=== PATIENT | male | born 1995 | race Caucasian/White ===

== ENCOUNTER 2017-01-03 09:06 | Emergency (ER) | payer MEDICAID ==
[~2017-01-03] VITALS: Ht 175.3 cm; Wt 77.0 kg
[2017-01-03 09:09] VITALS: Ht 175.3 cm; Wt 77.0 kg
[2017-01-03 09:57] LABS: URINE BLOOD (Dip) POC Negative (NEGATIVE)
[2017-01-03] MEDS ORDERED: IBUP-1542 PO (10:17)
--- NOTE | 2017-01-03 10:26 | ERA ---
ER Documentation Chief Complaint Date/Time DATE: 01/03/17 TIME: 10:23 Chief Complaint B/L FLANK PAIN X 1 WEEK HPI Patient is a 21-year-old female who presents complaining of right flank pain. 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 Patient says the pain is worse with movement and palpation. Patient denies any troubles urinating or moving bowels. Patient denies any blood in urine, headache, nausea, vomiting, fever or difficulty walking. Patient has not tried anything at this point to relieve the symptoms. ROS All systems reviewed and are negative except as per history of present illness. Medications Home Meds Active Scripts Ibuprofen* (Motrin*) 600 Mg Tab, 600 MG PO Q6H Y for PAIN AND OR ELEVATED TEMP, #30 TAB Prov:PERCY BONILLA PA-C 01/03/17 Allergies Allergies: Coded Allergies: No Known Allergy (Unverified , 11/04/13) PMhx/Soc Medical and Surgical Hx: pt denies Medical Hx, pt denies Surgical Hx Hx Alcohol Use: No Hx Substance Use: No Hx Tobacco Use: No Smoking Status: Never smoker Physical Exam Vitals Vital Signs Date Time Temp Pulse Resp B/P Pulse Ox O2 Delivery O2 Flow Rate FiO2 01/03/17 09:09 98.6 65 18 130/75 98 Physical Exam Const: Well-appearing 21-year-old male. Head: Atraumatic Eyes: Normal Conjunctiva ENT: Normal External Ears, Nose and Mouth. Neck: Full range of motion..~ No meningismus. Resp: Clear to auscultation bilaterally Cardio: Regular rate and rhythm, no murmurs Abd: Soft, non tender, non distended. Normal bowel sounds Skin: No petechiae or rashes Back: No midline. Positive generalized tenderness to the right flank. No CVA tenderness bilaterally. Range of motion intact. Ext: No cyanosis, or edema Neur: Awake and alert Psych: Normal Mood and Affect Results 24 hrs Laboratory Tests Test 01/03/17 09:57 Bedside Urine pH (LAB) 6.0 Bedside Urine Protein (LAB) Negative Bedside Urine Glucose (UA) Negative Bedside Urine Ketones (LAB) Negative Bedside Urine Blood Negative Bedside Urine Nitrite (LAB) Negative Bedside Urine Leukocyte Esterase (L Negative Procedures/MDM Patient is 21-year-old male presenting complaining of right posterior flank pain. Patient has not done anything at this time to relieve the symptoms. Patient's pain is worse with movement and palpation. Patient's pain is about a 7 out of 10. Went ahead and got a urinalysis to rule out hematuria for stone. Patient's urinalysis was unremarkable. We will go ahead and treat for musculoskeletal strain which is the most likely diagnosis at this time. This time I also do not suspect there to be any ischemia of bowel or blockage. Will discharge with return precautions as well as ibuprofen for inflammation and discomfort. Departure Diagnosis: Primary Impression: Strain of abdominal muscle Qualified Code: S39.011A - Strain of abdominal muscle, initial encounter Additional Impression: Muscle strain Condition: Stable Patient Instructions: Muscle Strain, Abdomen Additional Instructions: Return to emergency department if symptoms change, worsen or neuro symptoms develop. PERCY BONILLA PA-C Jan 03, 2017 10:26
== END 2017-01-03 10:49 | disposition home or self-care (01) ==
LOC: FTE 09:06
DX: S39.011A Strain of muscle, fascia and tendon of abdomen, initial encounter (principal); X58.XXXA Exposure to other specified factors, initial encounter; Y92.9 Unspecified place or not applicable
CPT/HCPCS: 81003; Z7502; 99283

== ENCOUNTER 2018-09-09 15:41 | Emergency (ER) | END 2018-09-09 16:40 | disposition left against medical advice (07) ==